=== PATIENT | female | born 1995 | race Caucasian/White ===

== ENCOUNTER 2016-09-29 17:20 | Emergency (ER) | payer OTHER ==
--- NOTE | ~2016-09-29 | CT71 ---
[facility] A Service [facility] RADIOLOGY TEXT RESULTS PATIENT: ASH MATHUR LOCATION: SED : 94 UNIT #: [id number] AGE: [address]: Tate Mane MD SEX: F ORDER DR: [id number] [place] [id number] E MR#: [id number] Acc #: [id number] NAME: ASH MATHUR : 1995 SEX: F STUDY DATE/TIME: 09/29/2016 18:36 UNIT: SED ROOM: STUDY DESCRIPTION: CT Head Wo Contrast Attending Physician: Tate Mane M.D. Ordering Physician: Tate Mane M.D. Primary Care Physician: Imelda Ray M.D. MEDICAL IMAGING REPORT This report is preliminary unless electronic signature is present. EXAM CT head without contrast INDICATIONS Seizure at work 30 minutes prior to arrival today. Headache. PROCEDURE Unenhanced CT of the head. This CT exam was performed with one or more of the following radiation dose reduction techniques: automatic control, adjustment of mA and/or kV according to patient size, and iterative reconstruction. COMPARISON 10/17/2012 FINDINGS Mild motion. No acute hemorrhage, abnormal mass effect, extraaxial collection or hydrocephalus. No convincing evidence for acute or early subacute large territory infarct. No depressed calvarial fracture. The paranasal sinuses and mastoid air cells are clear. IMPRESSION No acute intracranial findings Dictated by... Rafat Matute M.D. THIS IS AN ELECTRONICALLY VERIFIED REPORT Rafat Matute M.D. at 09/30/2016 10:06 AM EED/rnlaurence [facility] A Service [facility] RADIOLOGY TEXT RESULTS PATIENT: ASH MATHUR LOCATION: SED : 94 UNIT #: [id number] AGE: [address]: Tate Mane MD SEX: F ORDER DR: TD: 09/29/2016 19:15 JOB #: [id number] MEDICAL IMAGING REPORT Page 1 of 1
[~2016-09-29 17:20] MED LIST: COREG6.25 MG PO; EPIPEN0.3 MG/0.1 IM; FLEXERIL PO; IBUPROFEN800 MG PO; KEPPRA1000 MG; NO MEDICATIONS
[2016-09-29 18:32] LABS: CALCIUM SERUM 8.6 mg/dL (8.4-10.2); CREATININE SERUM 0.4 mg/dL (0.6-1.4); GLOM FILT RATE Estimated 148.9 mL/min (>60); POTASSIUM 3.9 mmol/L (3.5-5.1)
== END 2016-09-29 19:05 | disposition home or self-care (01) ==
LOC: SED 17:20
PROVIDERS: Emergency Medicine
DX: G40.909 Epilepsy, unspecified, not intractable, without status epilepticus (principal); Z88.8 Allergy status to other drugs, medicaments and biological substances
CPT/HCPCS: 36415; 70450; 80048; 82947; 84703; 96374; 99284; J1953

== ENCOUNTER 2016-10-21 20:51 | Emergency (ER) | payer OTHER ==
[2016-10-21] MEDS ORDERED: ALBUTEROL17 GM INH (21:03)
== END 2016-10-21 21:26 | disposition left against medical advice (07) ==
LOC: SED 20:51
DX: Z53.21 Procedure and treatment not carried out due to patient leaving prior to being seen by health care provider (principal)

== ENCOUNTER 2016-11-16 18:37 | Emergency (ER) | payer OTHER ==
[~2016-11-16 18:37] MED LIST changes: +ALBUTEROL17 GM INH
[2016-11-16 19:25] LABS: URINE SOURCE CLEAN CATCH
[2016-11-16 19:28] LABS: URINE APPEARANCE CLEAR; URINE BILIRUBIN NEG (NEG); URINE BLOOD NEG (NEG); URINE COLOR YELLOW; URINE GLUCOSE NEG (NORM); URINE KETONE NEG (NEG); URINE LEUKOCYTE ESTERASE 2+ (NEG); URINE NITRATE NEG (NEG); URINE PROTEIN NEG (NEG); URINE SPECIFIC GRAVITY <=1.005 (1.003-1.035); URINE UROBILINOGEN 0.2 MG/DL (NORM)
[2016-11-16 19:29] LABS: MICRO INDICATED? YES; URINE RBC 0-2 /[HPF] (0-2)
[2016-11-16 19:30] LABS: CULTURE INDICATED? YES; URINE BACTERIA 1+ (NEG); URINE SQUAMOUS EPITHELIAL CELL OCCAS /[HPF]; URINE TRANSITIONAL EPI CELLS FEW /[HPF]
[2016-11-16 19:37] LABS: AMPHETAMINE NEG (NEG); BARBITURATES NEG (NEG); BENZODIAZEPINES NEG (NEG); COCAINE NEG (NEG); MARIJUANA NEG (NEG); OPIATES NEG (NEG); TRICYCLIC ANTIDEPRESSANTS NEG (NEG); U METHADONE NEG (NEG)
== END 2016-11-16 19:58 | disposition home or self-care (01) ==
LOC: SED 18:37
PROVIDERS: Emergency Medicine
DX: R56.9 Unspecified convulsions (principal); N39.0 Urinary tract infection, site not specified; F41.9 Anxiety disorder, unspecified; F17.200 Nicotine dependence, unspecified, uncomplicated; Z88.8 Allergy status to other drugs, medicaments and biological substances
CPT/HCPCS: 80307; 81003; 84703; 87086; 99284

== ENCOUNTER → 2016-12-08 | Outpatient (CLI) | payer OTHER ==
--- NOTE | ~2016-12-08 | EE ---
Unit #: [id number] #: [id number] Patient: ASH MATHUR [id number] [address] [address] [id number] O MR#: [id number] NAME: ASH MATHUR : 1995 SEX: F STUDY DATE/TIME: 12/08/2016 UNIT: CEEG ROOM: STUDY DESCRIPTION: EEG Attending Physician: Genesis Giron M.D. Referring Physician: Genesis Giron M.D. Primary Care Physician: Jaya Reddy M.D. NEURODIAGNOSTICS REPORT EXAM EEG REASON FOR STUDY Seizure. TECH invi TECHNICAL INFORMATION This is a routine EEG performed using the standard International 10-20 System of electrode placement. Photic stimulation was performed. Hyperventilation also performed. REPORT Throughout the entire study, the best background rhythm seen is approximately 10-11 Hz. This rhythm is seen in both posterior head regions symmetrically and does attenuate to eye opening and closure. Hyperventilation was performed which does not appear to reproduce any abnormal build-up. Photic stimulation was also and did not elicit any epileptiform abnormalities. There does not appear to be any sleep recorded during the EEG. Throughout the entire study, there are no electrographic seizures recorded nor were there any independent epileptiform abnormalities seen. INTERPRETATION Normal awake EEG. A normal EEG does not rule out the possibility of seizure disorder. Clinical correlation is advised. Dictated by... Eliecer Hernandez II., M.D. GWS/kayleigh TD: 12/10/2016 12:58 JOB #: [id number] Unit #: [id number] #: [id number] Patient: ASH MATHUR NEURODIAGNOSTICS REPORT Page 1 of 1 X NEURODIAGNOSTICS REPORT
== END | disposition home or self-care (01) ==
LOC: CEEG 07:34
DX: R56.9 Unspecified convulsions (principal)
CPT/HCPCS: 95816

== ENCOUNTER → 2016-12-15 | Outpatient (CLI) | payer OTHER ==
--- NOTE | ~2016-12-15 | MR17 ---
[facility] A Service of [facility] RADIOLOGY TEXT RESULTS PATIENT: ASH MATHUR LOCATION: CMRI : 94 UNIT #: [id number] AGE: [address]: GENESIS CLAY SEX: F ORDER DR: [id number] [facility] [address] [place], [place] [address] [id number] O MR#: [id number] Acc #: [id number] NAME: ASH MATHUR : 1995 SEX: F STUDY DATE/TIME: 12/15/2016 16:06 UNIT: CMRI ROOM: STUDY DESCRIPTION: MR Brain WWo Contrast Attending Physician: Genesis Clay M.D. Referring Physician: Genesis Clay M.D. Ordering Physician: Physician Non-Staff Primary Care Physician: Jaya Reddy M.D. MRI CENTER REPORT This report is preliminary unless electronic signature is present. EXAM MRI of the brain with and without contrast dated 12/15/2016. COMPARISON CT head without contrast dated 09/29/2016. HISTORY Seizure-like activity began in 2011. Multiple daily seizures, worse in the last two months. Patient had a worse one two weeks ago. As much as 20 seizures in one day as per patient. FINDINGS Multisequence, multiplanar imaging of the brain was obtained with and without contrast. 10 mL of MultiHance was administered intravenously. No acute stroke, space-occupying intracranial mass, mass effect, midline shift, or hydrocephalus. Roberts-white junction is preserved. Basal ganglia, brainstem, and cerebellar hemispheres are within normal limits. Vascular flow voids of the major cerebral arteries and dural venous sinuses are not completely occluded on these thicker slices. Mild S-shaped nasal septal deviation is noted with paranasal sinus mucosal thickening. Imaged orbits with the ocular structures do not demonstrate any significant abnormality. Thin coronal T2 sequences through the hippocampal formations demonstrate expected shape, size, signal, and contour. No evidence of enhancing lesions in the postcontrast sequences. IMPRESSION No demonstrable intracranial abnormality. Dictated by... [facility] A Service of [facility] RADIOLOGY TEXT RESULTS PATIENT: ASH MATHUR LOCATION: CMRI : 94 UNIT #: [id number] AGE: [address]: GENESIS CLAY SEX: F ORDER DR: Laly Miles M.D. THIS IS AN ELECTRONICALLY VERIFIED REPORT Laly Miles M.D. at 12/21/2016 2:43 PM CPR/tmw TD: 12/17/2016 03:39 JOB #: [id number] MRI CENTER REPORT Page 1 of 1 COPY
== END | disposition home or self-care (01) ==
LOC: CMRI 15:45
DX: R56.9 Unspecified convulsions (principal)
CPT/HCPCS: 70553; A9577